=== PATIENT | male | born 1960 | race Caucasian/White ===

== ENCOUNTER → 2018-06-10 | Emergency (ER) | payer SELFPAY ==
[~2018-06-10] VITALS: Ht 172.7 cm; Wt 92.0 kg
[2018-06-10 22:50] VITALS: BP 130/83
== END | disposition home or self-care (01) ==
LOC: ER 22:49
DX: L02.416 Cutaneous abscess of left lower limb (principal); Z91.013 Allergy to seafood
CPT/HCPCS: 99282